=== PATIENT | female | born 1995 | race Caucasian/White ===

== ENCOUNTER 2021-07-09 09:41 | Emergency (ER) | payer OTHER ==
[~2021-07-09] VITALS: Ht 162.6 cm; Wt 112.7 kg
[2021-07-09] MEDS ORDERED: ACET-683 PO (09:51)
[2021-07-09] MEDS ORDERED: NS 1,000 ML IV ONE (12:10)
[2021-07-09] MEDS ORDERED: ONDANSETRON 4MG/2ML VIAL IV ONE (12:10)
[2021-07-09] MEDS ORDERED: KETOROLAC 30 MG/ML 1ML VIAL IV ONE (12:10)
[2021-07-09 13:37] VITALS: BP 134/75
[2021-07-09] MEDS ORDERED: ZOFR4TAB16 PO (15:26)
== END 2021-07-09 15:58 | disposition home or self-care (01) ==
LOC: M ED 09:41
DX: R50.9 Fever, unspecified (principal); R51.9 Headache, unspecified; R11.2 Nausea with vomiting, unspecified; U07.1 COVID-19
CPT/HCPCS: 96361; 96374; 96375; 99284; J1885; J2405

== ENCOUNTER → 2021-10-30 | Outpatient (REF) | payer OTHER ==
[~2021-10-30] MED LIST: ACET-683 PO; ZOFR4TAB16 PO
[2021-10-30 16:29] LABS: GC DNA AMPLIFICATION NEGATIVE (NEGATIVE)
== END ==
LOC: M SFHCLERA 11:29
PROVIDERS: ATTEND Student in an Organized Health Care Education/Training Program
DX: N76.0 Acute vaginitis (principal)

== ENCOUNTER → 2022-03-23 | Outpatient (CLI) | payer OTHER ==
[2022-03-23 15:33] LABS: HEMATOCRIT 38.2 % (36.0-47.0); HEMOGLOBIN 13.1 g/dl (12.0-15.5); MEAN CORPUSCULAR HGB CONC 34.3 g/dl (32.0-36.5); MEAN CORPUSCULAR VOLUME 93.2 fl (80.0-96.0); PLATELET COUNT, AUTOMATED 171 10^3/uL (150-450); WHITE BLOOD COUNT 7.4 10^3/uL (4.0-10.0)
[2022-03-23 17:09] LABS: HEPATITIS C VIRUS ABY INDEX < 0.0 INDEX (<0.8); HIV 1&2 SCREEN CENTAUR NEGATIVE (NEGATIVE)
[2022-03-23 17:23] LABS: GC DNA AMPLIFICATION NEGATIVE (NEGATIVE)
== END ==
LOC: M PLALAB 12:23
PROVIDERS: ATTEND Obstetrics & Gynecology
DX: Z34.80 Encounter for supervision of other normal pregnancy, unspecified trimester (principal); Z3A.00 Weeks of gestation of pregnancy not specified

== ENCOUNTER → 2022-04-24 | Outpatient (REF) | payer OTHER | LOC: M SFHCWAGY 16:58 | PROVIDERS: ATTEND Obstetrics & Gynecology | DX: Z36.89 Encounter for other specified antenatal screening (principal) ==

== ENCOUNTER → 2022-05-07 | Outpatient (CLI) | payer OTHER | LOC: M WHC 10:40 | PROVIDERS: ATTEND Obstetrics & Gynecology | DX: Z36.89 Encounter for other specified antenatal screening (principal); Z3A.20 20 weeks gestation of pregnancy ==

== ENCOUNTER → 2022-06-04 | Outpatient (CLI) | payer OTHER | LOC: M WHC 11:10 | PROVIDERS: ATTEND Advanced Practice Midwife | DX: Z34.92 Encounter for supervision of normal pregnancy, unspecified, second trimester (principal); Z3A.24 24 weeks gestation of pregnancy ==

== ENCOUNTER → 2022-08-04 | Outpatient (CLI) | payer OTHER ==
[2022-08-04 16:44] LABS: HEMATOCRIT 36.1 % (36.0-47.0); HEMOGLOBIN 12.1 g/dl (12.0-15.5); MEAN CORPUSCULAR HEMOGLOBIN 32.1 pg (27.0-33.0); MEAN CORPUSCULAR HGB CONC 33.5 g/dl (32.0-36.5); MEAN CORPUSCULAR VOLUME 95.8 fl (80.0-96.0); PLATELET COUNT, AUTOMATED 152 10^3/uL (150-450); RED BLOOD COUNT 3.77 10^6/uL (4.00-5.40); WHITE BLOOD COUNT 10.8 10^3/uL (4.0-10.0)
[2022-08-04 17:45] LABS: GC DNA AMPLIFICATION NEGATIVE (NEGATIVE)
== END ==
LOC: M PLALAB 10:29
PROVIDERS: ATTEND Advanced Practice Midwife
DX: Z34.92 Encounter for supervision of normal pregnancy, unspecified, second trimester (principal); Z3A.00 Weeks of gestation of pregnancy not specified

== ENCOUNTER → 2022-08-26 | Outpatient (REF) | payer OTHER ==
[~2022-08-26] MED LIST changes: +COLA100C5 PO; +IBUP-1022 PO; +PRENTAB9 PO; +PRIS100T PO; +TUMS500C PO; +VILA40TA PO
== END ==
LOC: M PLALAB 10:49
PROVIDERS: ATTEND Obstetrics & Gynecology
DX: Z36.85 Encounter for antenatal screening for Streptococcus B (principal)
CPT/HCPCS: 87081; G0463

== ENCOUNTER → 2022-09-03 | Outpatient (REF) | payer OTHER ==
[2022-09-03 16:20] LABS: GC DNA AMPLIFICATION NEGATIVE (NEGATIVE)
== END ==
LOC: M PLALAB 11:02
PROVIDERS: ATTEND Advanced Practice Midwife
DX: O98.813 Other maternal infectious and parasitic diseases complicating pregnancy, third trimester (principal); Z3A.00 Weeks of gestation of pregnancy not specified
CPT/HCPCS: 87810; 87850; G0463

== ENCOUNTER → 2022-09-04 | Outpatient (CLI) | payer OTHER ==
[~2022-09-04] MED LIST changes: -COLA100C5 PO; -IBUP-1022 PO; -PRENTAB9 PO; -PRIS100T PO; -TUMS500C PO; -VILA40TA PO
== END ==
LOC: M WHC 12:30
PROVIDERS: ATTEND Advanced Practice Midwife
DX: O26.843 Uterine size-date discrepancy, third trimester (principal); Z3A.37 37 weeks gestation of pregnancy

== ENCOUNTER 2022-09-13 16:20 | Outpatient (CLI) | payer OTHER ==
[~2022-09-13] VITALS: Ht 162.6 cm; Wt 125.4 kg
[2022-09-13] MEDS ORDERED: TUMS500C PO (16:43)
[2022-09-13] MEDS ORDERED: PRENTAB9 PO (16:43)
[2022-09-13] MEDS ORDERED: HOME MED LIST COMPLETE! XX SCH (16:45)
[2022-09-13 16:48] VITALS: BP 123/80
[2022-09-13] MEDS ORDERED: diphenhydrAMINE 25MG CAP PO ONE (17:00)
[2022-09-13] MEDS ORDERED: METOCLOPRAMIDE 10MG TAB PO ONE (17:00)
== END 2022-09-13 18:16 | disposition home or self-care (01) ==
LOC: M LDO 16:20
PROVIDERS: ATTEND Obstetrics & Gynecology
DX: O26.893 Other specified pregnancy related conditions, third trimester (principal); R51.9 Headache, unspecified; O99.893 Other specified diseases and conditions complicating puerperium; H53.8 Other visual disturbances; Z3A.38 38 weeks gestation of pregnancy
CPT/HCPCS: 59025; G0463

== ENCOUNTER 2022-09-15 06:17 | Inpatient (IN) | payer OTHER ==
[~2022-09-15] VITALS: Ht 162.6 cm; Wt 125.2 kg
[2022-09-15] VITALS (31 sets, daily range): BP systolic 101–162; BP diastolic 56–86
[~2022-09-15 06:17] MED LIST changes: +PRENTAB9 PO; +TUMS500C PO
[2022-09-15] MEDS ORDERED: LACTATED RINGER'S 1000 ML IV STA (07:00)
[2022-09-15] MEDS ORDERED: HOME MED LIST COMPLETE! XX SCH (08:05)
[2022-09-15 08:08] LABS: HEMATOCRIT 37.4 % (36.0-47.0); HEMOGLOBIN 12.3 g/dl (12.0-15.5); MEAN CORPUSCULAR HEMOGLOBIN 31.1 pg (27.0-33.0); MEAN CORPUSCULAR HGB CONC 32.9 g/dl (32.0-36.5); MEAN CORPUSCULAR VOLUME 94.4 fl (80.0-96.0); PLATELET COUNT, AUTOMATED 127 10^3/uL (150-450); RED BLOOD COUNT 3.96 10^6/uL (4.00-5.40); WHITE BLOOD COUNT 9.7 10^3/uL (4.0-10.0)
[2022-09-15] MEDS: PRENATAL VITAMINS CHEWABLE TABLET PO SCH (09:00)
[2022-09-15] MEDS ORDERED: OXYTOCIN DRIP 30 UNITS in IV 1 EA IV SCH ×2 (10:10→17:45)
[2022-09-15] MEDS: LR 1,000 ML IV SCH ×2 (10:15→14:59)
[2022-09-15] MEDS ORDERED: EPIDURAL/PCA KEYS XX PRN (12:50)
[2022-09-15] MEDS ORDERED: NALOXONE INJ 0.4MG/1ML VIAL IV PRN (12:50)
[2022-09-15] MEDS ORDERED: ePHEDrine SULFATE 25 MG/5 ML(5MG/ML) SYRINGE IVP PRN (12:50)
[2022-09-15] MEDS ORDERED: diphenhydrAMINE 50MG/ML VIAL IV PRN (12:50)
[2022-09-15] MEDS ORDERED: ONDANSETRON 4MG 2ML VIAL IV PRN (12:50)
[2022-09-15] MEDS ORDERED: LR 500 ML IV PRN (12:50)
[2022-09-15] MEDS: FENTANYL/ROPIVACAINE/NACL BAG 100 ML EPIDURAL SCH ×2 (13:20→22:50)
[2022-09-15] MEDS ORDERED: RHOGAM 300MCG (1500IU) INJ IM SCH (17:45)
[2022-09-15] MEDS ORDERED: LR 1,000 ML IV SCH (17:45)
[2022-09-15] MEDS ORDERED: DOCUSATE SODIUM 100MG CAPSULE PO PRN (17:45)
[2022-09-15] MEDS ORDERED: METHYLERGONOVINE MALEATE 0.2 MG TAB PO PRN (17:45)
[2022-09-15] MEDS ORDERED: DIBUCAINE 1% OINTMENT 30GM TOP PRN (17:45)
[2022-09-15] MEDS ORDERED: ACETAMINOPHEN TAB 650MG DOSE (2X325MG) PO PRN (17:45)
[2022-09-15] MEDS ORDERED: IBUPROFEN 600MG TAB PO PRN (17:45)
[2022-09-15] MEDS ORDERED: ANUSOL HC CREAM 30GM TOP PRN (17:45)
[2022-09-15] MEDS: IBUPROFEN 800 MG TAB PO PRN (23:48)
[2022-09-16] MEDS: ACETAMINOPHEN 500 MG TAB PO PRN ×2 (02:55→21:11)
[2022-09-16 06:00] VITALS: BP 111/59
[2022-09-16] MEDS: PRENATAL VITAMINS CHEWABLE TABLET PO SCH (08:14)
[2022-09-16] MEDS: IBUPROFEN 800 MG TAB PO PRN (08:17)
[2022-09-16] MEDS ORDERED: VILA40TA PO (10:27)
[2022-09-16] MEDS ORDERED: PRIS100T PO (10:27)
[2022-09-16 18:00] VITALS: BP 123/66
[2022-09-17] MEDS: IBUPROFEN 800 MG TAB PO PRN (04:39)
[2022-09-17 06:00] VITALS: BP 120/66
[2022-09-17] MEDS: PRENATAL VITAMINS CHEWABLE TABLET PO SCH (08:01)
[2022-09-17] MEDS ORDERED: MEASLES,MUMPS,RUBELLA VACCINE INJ (MMR-II) SC.IMMUN ONE (09:00)
[2022-09-17] MEDS ORDERED: IBUP-1022 PO (09:31)
[2022-09-17] MEDS ORDERED: COLA100C5 PO (09:31)
[2022-09-17] MEDS ORDERED: ACET-683 PO (09:31)
[2022-09-17] MEDS ORDERED: medroxyPROGESTERone ACET IM SUSP 150 MG/ML VIAL IM ONE (13:00)
== END 2022-09-17 12:50 | disposition home or self-care (01) | DRG 807 ==
LOC: M LDO 06:17 → M LDI 06:42 → M OBS 20:30
PROVIDERS: ADMIT Advanced Practice Midwife; ATTEND Obstetrics & Gynecology
PROC: 10E0XZZ Delivery of Products of Conception, External Approach (ICD-10-PCS; principal; 2022-09-15)
DX: O42.02 Full-term premature rupture of membranes, onset of labor within 24 hours of rupture (principal); Z37.0 Single live birth; Z3A.38 38 weeks gestation of pregnancy

== ENCOUNTER → 2023-11-08 | Outpatient (CLI) | payer OTHER ==
[~2023-11-08] MED LIST changes: +COLA100C5 PO; +IBUP-1022 PO; +PRIS100T PO; +VILA40TA PO
[2023-11-08 18:24] LABS: BASO % 0.6 % (0.0-1.0); EOS # 0.1 10^3/uL (0.0-0.5); EOS % 0.7 % (0.0-3.0); HEMATOCRIT 43.6 % (36.0-47.0); HEMOGLOBIN 14.1 g/dl (12.0-15.5); LYMPH # 2.4 10^3/uL (1.5-5.0); LYMPH % 36.6 % (24.0-44.0); MEAN CORPUSCULAR HEMOGLOBIN 29.6 pg (27.0-33.0); MEAN CORPUSCULAR HGB CONC 32.3 g/dl (32.0-36.5); MEAN CORPUSCULAR VOLUME 91.4 fl (80.0-96.0); MONO # 0.3 10^3/uL (0.0-0.8); NEUTROPHILS # 3.9 10^3/uL (1.5-8.5); NEUTROPHILS % 57.8 % (36.0-66.0); PLATELET COUNT, AUTOMATED 205 10^3/uL (150-450); RED BLOOD COUNT 4.77 10^6/uL (4.00-5.40); WHITE BLOOD COUNT 6.7 10^3/uL (4.0-10.0)
[2023-11-08 18:47] LABS: HEMOGLOBIN A1c 5.3 % (4.0-6.0)
[2023-11-08 18:53] LABS: THYROID STIMULATING HORMONE 1.161 uIU/ML (0.55-4.78); TOTAL 25(OH) VITAMIN D 19.1 NG/ML (20.0-100.0)
[2023-11-08 18:57] LABS: FREE T4 1.02 NG/DL (0.89-1.76)
[2023-11-08 18:59] LABS: ALBUMIN 4.1 G/DL (3.2-5.2); ALKALINE PHOSPHATASE 95 U/L (46-116); ALT/SGPT 20 U/L (7.0-40); AST/SGOT 11 U/L (<34); BLOOD UREA NITROGEN 13 MG/DL (9-23); CALCIUM LEVEL 9.3 MG/DL (8.5-10.1); CARBON DIOXIDE LEVEL 24 MMOL/L (20-31); CHLORIDE LEVEL 106 MMOL/L (98-107); CHOLESTEROL LEVEL 181 MG/DL (<200); CHOLESTEROL RISK RATIO 2.99 (<5); CREATININE FOR GFR 0.61 MG/DL (0.55-1.30); GLOMERULAR FILTRATION RATE > 60.0 (>60); GLUCOSE, FASTING 98 MG/DL (60-100); HDL CHOLESTEROL 60.5 MG/DL (>40); LDL CHOLESTEROL 103.9 MG/DL (<100); NON-HDL-C 120.5 MG/DL; POTASSIUM SERUM 4.2 MMOL/L (3.5-5.1); SODIUM LEVEL 141 MMOL/L (136-145); TOTAL PROTEIN 7.3 G/DL (5.7-8.2); TRIGLYCERIDES LEVEL 83 MG/DL (<150)
== END ==
LOC: M PLALAB 14:26
PROVIDERS: ATTEND Physician Assistant
DX: F90.9 Attention-deficit hyperactivity disorder, unspecified type (principal); E66.01 Morbid (severe) obesity due to excess calories; Z68.41 Body mass index [BMI] 40.0-44.9, adult